=== PATIENT | male | born 1970 | race Caucasian/White ===

== ENCOUNTER 2025-03-29 10:13 | Emergency (ER) | payer MEDICAID, OTHER ==
[~2025-03-29] VITALS: Ht 154.9 cm; Wt 70.0 kg
[2025-03-29 10:20] VITALS: O2SAT 95
[2025-03-29] MEDS: PIPERACILLIN/TAZO 3.375G/50ML 50 ML IV ONE (10:53)
[2025-03-29] MEDS: VANCOMYCIN 1G PREMIX 200 ML IV ONE (10:54)
[2025-03-29] MEDS: SODIUM CHLORIDE 0.9% (SEPSIS BOLUS) IV ONE (10:55)
[2025-03-29 10:56] LABS: BASOPHILS % 0.5 % (0.0-2.0); EOSINOPHILS % 0.2 % (0.0-5.0); HEMATOCRIT. 41.7 % (42.0-52.0); HEMOGLOBIN. 13.7 g/dL (14.0-18.0); LYMPHOCYTES % 8.4 % (20.0-50.0); MEAN PLATELET VOLUME 10.3 fl (7.4-10.4); MONOCYTES % 7.9 % (2.0-8.0); NEUTROPHILS % 83.0 % (40.0-76.0); PLATELET 200 x1000/uL (130-400); RED BLOOD CELL COUNT 5.02 mill/uL (4.7-6.1); RED CELL DISTRIBUTION WIDTH 16.0 % (11.6-14.6)
[2025-03-29 11:14] LABS: CREATININE 3.5 mg/dL (0.6-1.3)
[2025-03-29 11:15] LABS: TROPONIN I HIGH SENSITIVITY 45 ng/L (3.0-53); UREA NITROGEN BLOOD 41 mg/dL (9-23)
[2025-03-29 11:16] LABS: ASPARTATE AMINOTRANSFERASE 16 IU/L (<34)
[2025-03-29 11:17] LABS: BILIRUBIN DIRECT 0.2 mg/dL (<=3.0); BILIRUBIN TOTAL 0.5 mg/dL (0.1-1.0); PROTEIN TOTAL 7.8 g/dL (6.0-8.3)
[2025-03-29 11:33] LABS: INR 1.0
[2025-03-29 14:42] VITALS: BP 99/62; PULSE 84; RESP 18; TEMP 36.8; O2SAT 95
== END 2025-03-29 15:08 | disposition short-term general hospital (02) ==
LOC: ER 10:13 → EDBEDREQ 10:47 → ER 15:08 → CMPBEDREQ 03-30 08:18
DX: A41.9 Sepsis, unspecified organism (principal); R65.20 Severe sepsis without septic shock; E78.00 Pure hypercholesterolemia, unspecified; I10 Essential (primary) hypertension
CPT/HCPCS: 99291; 96365; 96367; 80076; 80048; 83605; 85025; 85610; 87040; 84484; 36415; 84145; 71045; 93005; J2543; J3373; J7030